=== PATIENT | male | born 1960 | race Caucasian/White ===

== ENCOUNTER 2025-01-15 08:19 | Emergency (ER) | payer OTHER, SELFPAY ==
[2025-01-15 08:20] VITALS: BP 144/99
--- NOTE | 2025-01-15 09:43 | ED.GENMED ---
History of Present Illness
General
Chief Complaint: Back Pain
Source: patient
Exam Limitations: none
Time Seen by Provider: 01/15/25 09:31
History of Present Illness
History of Present Illness:
64-year-old male presents complaining of right lower back pain getting worse since 3 days ago. [place]. The pain has been getting worse to the point this morning where he attempted to go to the bathroom. He got out of
bed stood up started to feel lightheaded and had to hold himself up against the wall while he urinated and he fell afterwards because of the pain. He became lightheaded and sweaty. No fever. No bowel or bladder. He notes his leg dysfunction is a
product of his back pain. He denies leg numbness. He tried Advil at home without relief. No other complaints
Phy Exam
Physical Exam
Physical Exam:
General: Well-appearing male no acute respiratory distress
HEENT: Normocephalic atraumatic
Heart: Regular rate and rhythm
Lungs: Clear no wheeze
Musculoskeletal exam: The patient is tender over the right lumbosacral junction no midline tenderness
Neurologic exam: Good sensation to the legs. Bilateral patellar reflexes 2
Course
Orders/Labs/Results
Orders:
Orders
01/15/25 09:42
Ketorolac [Toradol] 30 mg IV NOW STA
diazePAM [Valium Injection] 5 mg IV NOW STA
Vital Signs
Initial and Last Documented VS:
Initial Vital Signs
Temp Pulse Resp BP Pulse Ox
98.4 F 57 18 144/99 99
01/15/25 08:20 01/15/25 08:20 01/15/25 08:20 01/15/25 08:20 01/15/25 08:20
Last Documented Vital Signs
Temp Pulse Resp BP Pulse Ox
98.4 F 57 18 144/99 99
01/15/25 08:20 01/15/25 08:20 01/15/25 08:20 01/15/25 08:20 01/15/25 09:44
MDM/Problems Addressed
Differential Diagnosis Includes:
Right lower back pain no neurologic red flags to suggest cauda equina. No fever infectious source. Suspect likely muscular strain versus radiculopathy. Will try Toradol and Valium.
*Pulse Oximetry
SaO2: 99
Oxygen Mode of Delivery: Room air
Patient hypoxic: no
*Critical Care Note
Total Time (30-74mins, 75-104mins- exclusive of procedures): Not Applicable
Update Note
Update Note:
Patient feeling better. Will discharge patient home with anti-inflammatories and muscle relaxers. Suspect lumbar strain
ED Attending Note
-
Portions of this chart may have been created with voice recognition software.� Occasional wrong word or��sound alike� substitutions may have occurred due to the inherent limitations of voice recognition software.
Discharge Plan
Departure
Patient Disposition: Home (Routine Discharge)
Date of Disposition: 01/15/25
Time of Disposition: 11:47
Patient with high blood pressure during this ER visit?: No
Discharge Problem:
Lumbar strain
Instructions: Low Back Pain (DC)
Prescriptions:
New
ibuprofen 600 mg tablet
600 mg PO Q8H PRN (Reason: Pain) Qty: 15 0RF
diazepam [Valium] 5 mg tablet
5 mg PO TID PRN (Reason: spasm) Qty: 7 0RF
Referrals:
Madi Oviedo DO [Family Provider, Family Practice]
Activity Restrictions/Additional Instructions:
Rest. Use warm compresses to the area. Perform gentle stretches as tolerated. Use medicine as needed for pain or spasm.
Interventions
Interventions:
*Risk Screen - Suicide Last Done: 01/15/25 08:24
*General Assessment Last Done: 01/15/25 08:24
*Neglect/Abuse Screening Last Done: 01/15/25 08:24
*ED- Fall Risk Assessment Last Done: 01/15/25 10:11
*ED COVID-19 Vaccine History Last Done: 01/15/25 10:11
ED-Musculoskeletal Assessment Last Done: 01/15/25 10:11
Discharge Date and Time
Print Language: [place]
[2025-01-15] MEDS: TORADOL 30 MG IV (10:19)
[2025-01-15] MEDS: VALIUM INJECTION 5 MG IV (10:20)
== END 2025-01-15 12:18 | disposition home or self-care (01) ==
LOC: EMR 08:19
PROVIDERS: EMERGENCY PHYSICIAN Emergency Medicine; FAMILY PHYSICIAN Family Medicine
DX: S39.012A Strain of muscle, fascia and tendon of lower back, initial encounter (principal); W19.XXXA Unspecified fall, initial encounter
CPT/HCPCS: 99284; 96374; 96375

== ENCOUNTER → 2025-06-06 08:46 | Outpatient (REF) | payer OTHER, SELFPAY | LOC: REG 08:46 | PROVIDERS: ATTENDING PHYSICIAN Chiropractor; FAMILY PHYSICIAN Family Medicine | DX: M99.01 Segmental and somatic dysfunction of cervical region (principal) | CPT/HCPCS: 72052 ==